=== PATIENT | female | born 1995 | race Hispanic/Latino ===

== ENCOUNTER 2017-06-16 04:12 | Emergency (ER) | payer OTHER ==
[2017-06-16 05:52] LABS: Basophils % (Auto) 0.5 % (0.0-1.8); Hematocrit 37.9 % (30.3-42.9); Hemoglobin 12.7 gm/dl (10.1-14.3); Mean Corpuscular HGB Conc 34 % (30-34); Mean Corpuscular Hemoglobin 29 pg (28-32); Mean Corpuscular Volume 86 fl (79-97); Platelet Count 221 K/mm3 (140-440); Red Cell Distribution Width 16.3 % (13.2-15.2)
[2017-06-16 05:59] LABS: Urine Drugs of Abuse Note Disclamer
[2017-06-16 06:07] LABS: Anion Gap 16 mmol/L; Blood Urea Nitrogen 6 mg/dL (7-17); Calcium 8.2 mg/dL (8.4-10.2); Carbon Dioxide 26 mmol/L (22-30); Glucose 116 mg/dL (65-100); Potassium 3.1 mmol/L (3.6-5.0); Sodium 147 mmol/L (137-145)
[2017-06-16 06:10] LABS: Bilirubin,Urine NEG (Negative); Blood,Urine NEG (Negative); Ketones,Urine NEG (Negative); Leukocyte Esterase,Urine NEG (Negative); Mucus,Urine FEW /HPF; Nitrite,Urine NEG (Negative); Protein,Urine <15 mg/dL mg/dL (Negative); Urobilinogen,Urine < 2.0 mg/dL (<2.0); WBC,Urine < 1.0 /HPF (0.0-6.0)
[2017-06-16] MEDS ORDERED: NACL 0.9% IR ONE (07:12)
[2017-06-16] MEDS ORDERED: BOOSTRIX IM ONE (07:16)
--- NOTE | 2017-06-16 07:19 | Emergency Department Report ---
HPI - General Chief Complaint: Psych Time Seen by Provider: 06/16/17 07:04 - HPI HPI: [facility] The patient is 22-year-old female presenting with a chief complaint of self- inflicted wrist lacerations. The patient states last night she cut both of her wrists multiple times with a icebox man. When asked why she did patient states "I couldn't tell you." Patient denies any other attempts at harming herself. Patient was brought into the [facility] under 1013 with a document the patient "made threats to harm self, knew where he/she was, knew who he/she was, appeared calm, cooperative, attempted to injure or injure himself, knew the approximate time and date." Location: Bilateral wrist, mental state Duration: Last night Quality: Self-harm Severity: Moderate Modifying factors: [see above] Context: [see above] Mode of transportation: [not driving] ED Past Medical Hx - Past Medical History Previous Medical History?: No - Surgical History Past Surgical History?: No - Family History Family history: no significant - Social History Smoking Status: Current Some Day Smoker Substance Use Type: Alcohol, Cocaine (patient denied illicit drug use but urine screen was positive for cocaine) ED Review of Systems ROS: Stated complaint: SUICIDAL ATTEMPT Other details as noted in HPI Comment: All other systems reviewed and negative Constitutional: denies: chills, fever Eyes: denies: eye pain, eye discharge, vision change ENT: denies: ear pain, throat pain Respiratory: denies: cough, shortness of breath, wheezing Cardiovascular: denies: chest pain, palpitations Endocrine: no symptoms reported Gastrointestinal: denies: abdominal pain, nausea, diarrhea Genitourinary: denies: urgency, dysuria, discharge Musculoskeletal: denies: back pain, joint swelling, arthralgia Skin: other (self-inflicted wrist lacerations) Neurological: denies: headache, weakness, paresthesias Psychiatric: other (self-mutilation). denies: anxiety, depression Hematological/Lymphatic: denies: easy bleeding, easy bruising Physical Exam - Physical Exam Vital Signs: Vital Signs 06/16/17 04:44 Temperature 98.8 F Pulse Rate 84 Respiratory 17 Rate Blood Pressure 94/57 O2 Sat by Pulse 99 Oximetry Physical Exam: GENERAL: The patient is well-developed well-nourished female lying on stretcher sleeping not appearing to be in acute distress. Patient easily awakened HEENT: Normocephalic. Atraumatic. Extraocular motions are intact. Patient has moist mucous membranes. NECK: Supple. Trachea midline CHEST/LUNGS: Clear to auscultation. There is no respiratory distress noted. HEART/CARDIOVASCULAR: Regular. There is no tachycardia. There is no gallop rub or murmur. ABDOMEN: Abdomen is soft, nontender. Patient has normal bowel sounds. There is no abdominal distention. SKIN: Numerous superficial lacerations to the left anterior forearm. One superficial laceration to the right anterior forearm and 1 deeper laceration requiring closure to the right forearm approximately 5 cm in length. There is no diaphoresis. NEURO: The patient is awake, alert, and oriented. The patient is cooperative. The patient has normal speech MUSCULOSKELETAL: There is no limitation range of motion. ED Course Vital Signs 06/16/17 04:44 Temperature 98.8 F Pulse Rate 84 Respiratory 17 Rate Blood Pressure 94/57 O2 Sat by Pulse 99 Oximetry - Laceration /Wound Repair Right Anterior Arm Wound Location: upper extremity Wound Length (cm): 5 Wound's Depth, Shape: superficial, linear Wound Explored: clean Irrigated w/ Saline (ccs): 500 Betadine Prep?: No (hydrogen peroxide prep) Wound Repaired With: Dermabond Left Anterior Arm Wound Location: upper extremity Wound Length (cm): 5 Wound's Depth, Shape: superficial Wound Explored: clean Betadine Prep?: No (hydrogen peroxide) Wound Repaired With: Dermabond ED Medical Decision Making - Lab Data Result diagrams: 06/16/17 05:20 06/16/17 05:20 Laboratory Tests 06/16/17 06/16/17 06/16/17 05:20 05:20 05:20 WBC 5.0 RBC 4.40 Hgb 12.7 Hct 37.9 MCV 86 MCH 29 MCHC 34 RDW 16.3 H Plt Count 221 Lymph % (Auto) 29.4 Tate % (Auto) 7.5 H Eos % (Auto) 2.0 Baso % (Auto) 0.5 Lymph # 1.5 Tate # 0.4 Eos # 0.1 Baso # 0.0 Seg Neutrophils % 60.6 Seg Neutrophils # 3.0 Sodium 147 H Potassium 3.1 L Chloride 108.0 H Carbon Dioxide 26 Anion Gap 16 BUN 6 L Creatinine 0.6 L Estimated GFR > 60 BUN/Creatinine Ratio 10.00 Glucose 116 H Calcium 8.2 L Urine Color Urine Turbidity Urine pH Ur Specific Glidden Urine Protein Urine Glucose (UA) Urine Ketones Urine Blood Urine Nitrite Urine Bilirubin Urine Urobilinogen Ur Leukocyte Esterase Urine WBC (Auto) Urine RBC (Auto) U Epithel Cells (Auto) Amorphous Crystals Urine Mucus Urine HCG, Qual Salicylates Urine Opiates Screen Urine Methadone Screen Acetaminophen Ur Barbiturates Screen Ur Phencyclidine Scrn Ur Amphetamines Screen U Benzodiazepines Scrn Urine Cocaine Screen U Marijuana (THC) Screen Drugs of Abuse Note Plasma/Serum Alcohol 0.17 H 06/16/17 06/16/17 06/16/17 05:20 05:20 07:05 WBC RBC Hgb Hct MCV MCH MCHC RDW Plt Count Lymph % (Auto) Tate % (Auto) Eos % (Auto) Baso % (Auto) Lymph # Tate # Eos # Baso # Seg Neutrophils % Seg Neutrophils # Sodium Potassium Chloride Carbon Dioxide Anion Gap BUN Creatinine Estimated GFR BUN/Creatinine Ratio Glucose Calcium Urine Color Urine Turbidity Urine pH Ur Specific Glidden Urine Protein Urine Glucose (UA) Urine Ketones Urine Blood Urine Nitrite Urine Bilirubin Urine Urobilinogen Ur Leukocyte Esterase Urine WBC (Auto) Urine RBC (Auto) U Epithel Cells (Auto) Amorphous Crystals Urine Mucus Urine HCG, Qual Negative Salicylates < 0.3 L Urine Opiates Screen Urine Methadone Screen Acetaminophen < 15.0 Ur Barbiturates Screen Ur Phencyclidine Scrn Ur Amphetamines Screen U Benzodiazepines Scrn Urine Cocaine Screen U Marijuana (THC) Screen Drugs of Abuse Note Plasma/Serum Alcohol 06/16/17 06/16/17 Unknown Unknown WBC RBC Hgb Hct MCV MCH MCHC RDW Plt Count Lymph % (Auto) Tate % (Auto) Eos % (Auto) Baso % (Auto) Lymph # Tate # Eos # Baso # Seg Neutrophils % Seg Neutrophils # Sodium Potassium Chloride Carbon Dioxide Anion Gap BUN Creatinine Estimated GFR BUN/Creatinine Ratio Glucose Calcium Urine Color Yellow Urine Turbidity Clear Urine pH 7.0 Ur Specific Glidden 1.012 Urine Protein <15 mg/dl Urine Glucose (UA) Neg Urine Ketones Neg Urine Blood Neg Urine Nitrite Neg Urine Bilirubin Neg Urine Urobilinogen < 2.0 Ur Leukocyte Esterase Neg Urine WBC (Auto) < 1.0 Urine RBC (Auto) 1.0 U Epithel Cells (Auto) 1.0 Amorphous Crystals Few Urine Mucus Few Urine HCG, Qual Salicylates Urine Opiates Screen Presumptive negative Urine Methadone Screen Presumptive negative Acetaminophen Ur Barbiturates Screen Presumptive negative Ur Phencyclidine Scrn Presumptive negative Ur Amphetamines Screen Presumptive negative U Benzodiazepines Scrn Presumptive negative Urine Cocaine Screen Presumptive positive U Marijuana (THC) Screen Presumptive negative Drugs of Abuse Note Disclamer Plasma/Serum Alcohol - Differential Diagnosis suicidal ideation, self-mutilation, wrist lacerations Critical care attestation.: If time is entered above; I have spent that time in minutes in the direct care of this critically ill patient, excluding procedure time. ED Disposition Clinical Impression: Self-mutilation, Laceration of wrist Disposition: [id number] PSY HOSP/PSY UNIT Is pt being admited?: No Does the pt Need Aspirin: No Condition: Serious Referrals: PRIMARY CARE, [Primary Care Provider] - 3-5 Days Time of Disposition: 07:22 (awaiting acceptance)
[2017-06-16] MEDS ORDERED: K-DUR PO ONE (07:21)
[2017-06-16] MEDS ORDERED: ATIVAN ONE (08:59)
[2017-06-16] MEDS ORDERED: HYDROGEN PEROXIDE ONE (12:35)
[2017-06-16] MEDS ORDERED: HYDROGEN PEROXIDE TP ONE (12:45)
--- NOTE | 2017-06-16 13:56 | Consultation ---
History of Present Illness - Reason for Consult Consult date: 06/16/17 Reason for consult: Mental Health Evaluation Requesting physician: STEPHANY MC - Chief Complaint Chief complaint: "I am stupid" - History of Present Psychiatric Illness The patient is 22-year-old female presenting with a chief complaint of self- inflicted wrist lacerations. Today patient is cooperative, but emotional during the assessment. She stated that she got into an urgent with her girlfriend about "cheating." She stated that this has been an ongoing thing in their relationship. She stated that she got "fed up" and could not take it anymore. So she filled the bathtub up with water, got a boxcutter, and cut her wrists. She stated that she didn't know if she wanted to "live or " when she cut her wrists. She feel like she is okay now, and want to be released from the hospital so she can go to work tonight. She stated that she was drinking (etoh) prior to cutting her wrist. She stated that she have been drinking more lately, but could not explain why. I spoke with her father Mr Brock La [phone] and he stated that this isn't behavior of his daughter. He stated that something must have happened for her to want to cut her wrist. He deny that his daughter has a psy hx. She denies SI/HI's and AVH's, and could not confirm or deny being depressed. She denies sleep disturbance and a poor appetite. She denies recreational drug use, but positive for cocaine. She stated that she do not use cocaine. Patient alcohol serum 0.17. Medications and Allergies Allergies Allergy/AdvReac Type Severity Reaction Status Date / Time No Known Allergies Allergy Unverified 06/16/17 04:57 Past psychiatric history - Past Medical History Past Medical History: No medical history Past Surgical History: No surgical history - past Psychiatric treatment and history psychiatric treatment history: She denies a psy hx. Mother is Bipolar DO. - Social History Social history: lives with family ([employer] Graduate) Mental Status Exam - Vital signs Last Vital Signs Temp 98.8 F 06/16/17 04:44 Pulse 84 06/16/17 04:44 Resp 17 06/16/17 04:44 BP 94/57 06/16/17 04:44 Pulse Ox 99 06/16/17 04:44 - Exam Narrative exam: ROS: (-) psychosis, (+) Unspecified Mood DO MSE: Appearance: cooperative, emotional Behavior: poor eye contact Speech: regular rate and tone Mood: "oaky" Affect: labile Thought Process: circumstantial Thought Content: denies SI/HI's and AVH's Motor Activity: ambulatory Cognition: A/Ox 3 Insight: variable Judgment: variable Results Result Diagrams: 06/16/17 05:20 06/16/17 05:20 Abnormal lab results 06/16/17 06/16/17 06/16/17 Range/Units 05:20 05:20 05:20 RDW 16.3 H (13.2-15.2) % Lares % (Auto) 7.5 H (0.0-7.3) % Sodium 147 H (137-145) mmol/L Potassium 3.1 L (3.6-5.0) mmol/L Chloride 108.0 H (98-107) mmol/L BUN 6 L (7-17) mg/dL Creatinine 0.6 L (0.7-1.2) mg/dL Glucose 116 H (65-100) mg/dL Calcium 8.2 L (8.4-10.2) mg/dL Salicylates (2.8-20.0) mg/dL Plasma/Serum Alcohol 0.17 H (0-0.07) gm% 06/16/17 Range/Units 05:20 RDW (13.2-15.2) % Lares % (Auto) (0.0-7.3) % Sodium (137-145) mmol/L Potassium (3.6-5.0) mmol/L Chloride (98-107) mmol/L BUN (7-17) mg/dL Creatinine (0.7-1.2) mg/dL Glucose (65-100) mg/dL Calcium (8.4-10.2) mg/dL Salicylates < 0.3 L (2.8-20.0) mg/dL Plasma/Serum Alcohol (0-0.07) gm% All other labs normal. Assessment and Plan Assessment and plan: Impression: Unspecified Mood DO. Substance Use DO (cocaine). Alcohol Use DO. Today patient is cooperative, but emotional during the assessment. Positive for cocaine. Patient impulsive and minimizes the severity of her actions (self injury). DDx: Borderline Personality DO, R/O Bipolar, R/O MDD, R/O Substance Induced Mood DO, R/O Alcohol Induced Mood DO Recommendation/Plan: Continue 1013 with placement to inpatient psy services. Assess patient in 24 hours to determine proper medication treatment if indicated. Monitor for self injury.
[2017-06-16 19:40] VITALS: BP 122/86
== END 2017-06-17 09:00 ==
LOC: EEVIPCON 04:12 → ED 04:12
DX: S61.512A Laceration without foreign body of left wrist, initial encounter (principal); S61.511A Laceration without foreign body of right wrist, initial encounter; F17.200 Nicotine dependence, unspecified, uncomplicated; F14.10 Cocaine abuse, uncomplicated; X78.8XXA Intentional self-harm by other sharp object, initial encounter; Y93.9 Activity, unspecified; Y92.9 Unspecified place or not applicable; Y99.9 Unspecified external cause status
CPT/HCPCS: 12004; 36415; 80048; 80307; 81001; 81025; 84132; 85025; 90471; 90715; 99285; G0480; 80320; J2060